=== PATIENT | female | born 1970 | race Caucasian/White ===

== ENCOUNTER 2018-07-03 10:29 | Emergency (ER) | payer MEDICAID, OTHER ==
[~2018-07-03] VITALS: Ht 167.6 cm; Wt 63.3 kg
[2018-07-03 10:33] VITALS: Ht 167.6 cm; Wt 63.3 kg
--- NOTE | 2018-07-03 11:11 | ERD ---
ER Documentation Chief Complaint Chief Complaint Complains of a headache x 1 week with difficulty speaking HPI 48-year-old female with history of hypertension and diabetes mellitus type 2 presents to the ED complaining of a one week history of gradual onset, worsening, nonradiating, pressure-like generalized headache which localizes to the occipital area. Patient also has feelings of subjective left facial numbness which has been intermittent and feels as though her speech is not normal. No neck or back pain. Denies chest pain, palpitations or shortness of breath. No abdominal pain, nausea, vomiting, diarrhea or constipation. No URI symptoms, cough or rash. No fevers or chills. No relieving or exacerbating factors. ROS All systems reviewed and are negative except as per history of present illness. Medications Home Meds Reported Medications Aspirin* (Aspirin* EC) 81 Mg Tablet.dr, 81 MG PO DAILY, TAB 07/03/18 Benazepril Hcl* (Benazepril Hcl*) 10 Mg Tablet, 10 MG PO DAILY, #30 TAB 07/03/18 Metformin Hcl* (Metformin Hcl*) 1,000 Mg Tablet, 1000 MG PO WITH BREAKFAST DINNE, #60 TAB 07/03/18 Glyburide* (Glyburide*) 5 Mg Tablet, 5 MG PO BID, #60 TAB 07/03/18 Allergies Allergies: Coded Allergies: No Known Allergy (Unverified , 07/03/18) PMhx/Soc Reviewed in chart. As per HPI. History of Surgery: No Anesthesia Reaction: No Hx Neurological Disorder: No Hx Respiratory Disorders: No Hx Cardiac Disorders: Yes Hx Psychiatric Problems: No (Hypertension) Hx Miscellaneous Medical Probl: Yes (Diabetes, hyperlipidemia) Hx Alcohol Use: No Hx Substance Use: No Hx Tobacco Use: No FmHx No sudden cardiac , stroke or cancer Physical Exam Vitals Vital Signs Date Temp Pulse Resp B/P (MAP) Pulse Ox O2 O2 Flow FiO2 Time Delivery Rate 07/03/18 98.7 77 16 143/63 99 Room Air 14:00 (89) 07/03/18 73 14 128/64 100 Room Air 13:00 (85) 07/03/18 98.7 90 20 190/78 100 10:33 (115) Physical Exam Const: Anxious but in no acute distress no acute distress Head: Atraumatic Eyes: Pupils equal react to light, extraocular movements are intact. Normal Conjunctiva. No nystagmus. ENT: Normal External Ears, Nose and Mouth. Neck: Full range of motion. Carotids 2+ bilateral lower bruits. No meningismus. Resp: Breath sounds are equal and clear to auscultation bilaterally Cardio: Regular rate and rhythm, no murmurs Abd: Soft, non tender, non distended. Normal bowel sounds. No masses or abnormal pulsations. No rebound or guarding. Skin: No petechiae or rashes Back: No midline or flank tenderness Ext: No cyanosis, or edema Neur: Awake and alert. Cranial nerves II through XII are grossly intact. Motor and sensory equal bilaterally. DTRs are symmetrical. Normal speech. Normal [id number]. No dysdiadochokinesis. Normal gait. Plantar reflexes are downgoing. Psych: Anxious but not depressed. Cooperative. Result Diagram: 07/03/18 1112 07/03/18 1112 Results 24 hrs Laboratory Tests Test 07/03/18 11:12 07/03/18 11:24 07/03/18 12:56 White Blood Count 4.7 10^3/ul Red Blood Count 4.25 10^6/ul Hemoglobin 12.0 g/dl Hematocrit 37.3 % Mean Corpuscular Volume 87.8 fl Mean Corpuscular Hemoglobin 28.2 pg Mean Corpuscular Hemoglobin Concent 32.2 g/dl Red Cell Distribution Width 12.8 % Platelet Count 225 10^3/UL Mean Platelet Volume 11.4 fl Immature Granulocytes % 0.200 % Neutrophils % 52.0 % Lymphocytes % 41.2 % Monocytes % 5.1 % Eosinophils % 0.9 % Basophils % 0.6 % Nucleated Red Blood Cells % 0.0 /100WBC Immature Granulocytes # 0.010 10^3/ul Neutrophils # 2.4 10^3/ul Lymphocytes # 1.9 10^3/ul Monocytes # 0.2 10^3/ul Eosinophils # 0.0 10^3/ul Basophils # 0.0 10^3/ul Nucleated Red Blood Cells # 0.0 10^3/ul Sodium Level 143 mmol/L Potassium Level 4.0 mmol/L Chloride Level 107 mmol/L Carbon Dioxide Level 27 mmol/L Anion Gap 9 Blood Urea Nitrogen 6 mg/dl Creatinine 0.42 mg/dl Est Glomerular Filtrat Rate mL/min > 60 mL/min Glucose Level 137 mg/dl Calcium Level 10.1 mg/dl POC Beta HCG, Qualitative NEGATIVE Bedside Glucose 108 mg/dL Current Medications Medications Dose Sig/Erick Start Time Status Last (Trade) Ordered Route PRN Stop Time Admin Dose Reason Admin 10 mg ONCE STAT 07/03/18 DC 07/03/18 Metoclopramid IV 11:43 07/03/18 14:40 e HCl 11:45 (Reglan) Ketorolac 15 mg ONCE STAT 07/03/18 DC 07/03/18 Tromethamine IV 14:33 07/03/18 14:38 (Toradol) 14:34 Procedures/MDM DOCUMENTS REVIEWED: ED nurse, [ ] LAB INTERPRETATION: [] EKG: Time: [ ] My Interpretation IMAGING: PROCEDURE: CT brain without contrast CLINICAL INDICATION: Headaches TECHNIQUE: CT of the brain without contrast was performed on a multidetector CT scanner, with multiplanar reformats. One or more of the following dose reduction techniques were used: Automated exposure control, adjustment in mA and / or kV according to patient size, use of iterative reconstructive technique. CTDIvol = 39 mGy; DLP = 555 mGy-cm. DICOM images are available. COMPARISON: None available FINDINGS: No acute intracranial hemorrhage is identified. No extra-axial fluid collection is seen. There is no mass effect. No midline shift is identified. There is no hydrocephalus. The ventricles and sulci are unremarkable. The density of the brain is unremarkable. Alfonso-white junctions are preserved. Calvarium and skull base are intact. Mastoid air cells and imaged paranasal sinuses grossly clear. IMPRESSION: No evidence of acute intracranial pathology. RPTAT: VV .Nato Varela MD, Date Time Electronically viewed and signed by .Nato Varela MD, on 07/03/2018 12:50 .O/ ED COURSE: [] REEXAMINATION/REEVALUATION: Time: [] MEDICAL DECISION MAKING: []. Stable for discharge with precautionary instructions and outpatient follow-up as counseled. Counseled patient[ and family] regarding diagnostic workup, diagnosis and need for followup. Understands to return to ED if symptoms recur, worsen or any other concerns. Departure Diagnosis: Primary Impression: Headache Headache type: unspecified Headache chronicity pattern: episodic headache Intractability: not intractable Qualified Codes: R51 - Headache Additional Impression: Numbness and tingling of left side of face Condition: Stable RANDELL CALLOWAY MD July 03, 2018 11:11
[2018-07-03] MEDS ORDERED: GLYB5TAB3 PO (11:25)
[2018-07-03] MEDS ORDERED: METF100010 PO (11:26)
[2018-07-03] MEDS ORDERED: ASPI-817 PO (11:26)
[2018-07-03] MEDS ORDERED: BENA10TA4 PO (11:26)
[2018-07-03] MEDS: METOCLOPRAMIDE 10 MG INJ IV STA ×2 (11:43→14:40)
[2018-07-03] MEDS ORDERED: KETOROLAC 15 MG INJ IV STA (14:33)
[2018-07-03 15:55] VITALS: BP 158/75; PULSE 81; RESP 14
== END 2018-07-03 15:55 | disposition home or self-care (01) ==
LOC: E/R 10:29
DX: R51 Headache (principal); R20.0 Anesthesia of skin; R20.2 Paresthesia of skin; I10 Essential (primary) hypertension; E11.9 Type 2 diabetes mellitus without complications
CPT/HCPCS: 36415; 70450; 80048; 81025; 82962; 85025; 96374; 96375; J1885; J2765; Z7502; Z7610